=== PATIENT | female | born 1955 | race Caucasian/White ===

== ENCOUNTER 2017-01-02 08:59 | Emergency (ER) | payer BC ==
[2017-01-02 09:28] VITALS: BP 151/98
--- NOTE | 2017-01-02 09:45 | UC ---
Complaint Female HPI - HPI Summary HPI Summary: 2 day history of groin and ache low in buttocks, without dysuria or frequency. However, she does have a hx of UTI's presenting in a similar way. No history of stones. Concern about UTI led her to take a dose of cephalexin yesterday. No history of injury, does have a lumbar disk problem which is treated with injections. Location of pain and pattern is very different from this. Has been walking at least 04580 steps most days x 4 weeks without pain. UA is positive for nitrites. - History Of Current Complaint Chief Complaint: UCGeneralIllness Stated Complaint: URINARY Time Seen by Provider: 01/02/17 09:13 Hx Obtained From: Patient Onset/Duration: Gradual Onset, Lasting Days - 2 Timing: Intermittent, Lasting Minutes Severity Initially: Mild Severity Currently: Moderate Character: Cramping Aggravating Factor(s): Movement Alleviating Factor(s): Position Associated Signs And Symptoms: Positive: Back Pain - Allergies/Home Medications Allergies/Adverse Reactions: Allergies Allergy/AdvReac Type Severity Reaction Status Date / Time No Known Allergies Allergy Verified 01/02/17 09:10 Home Medications: Home Medications Cephalexin CAP* [Keflex CAP*] 500 mg PO ONCE 01/02/17 [History Confirmed ] HYDROcodo/Acetam5/325MG PREPAK [HYDROcodone/ACETAMIN 5-325 MG*] 1 tab PO Q4H PRN 01/02/17 [History Confirmed 01/02/17] PMH/Surg Hx/FS Hx/Imm Hx Previously Healthy: Yes - obese - Surgical History Surgical History: Yes Surgery Procedure, Year, and Place: Bilateral Bunionectomy, 2017, [place]; Bilateral Cataract Extration, 2016, [facility]; T&A, 1961, [place] - Family History Known Family History: Positive: Other - mother living age 88, healthy. Father of unknown causes. - Social History Occupation: Employed Full-time Alcohol Use: Rare Substance Use Type: None Smoking Status (MU): Former Smoker Length of Time of Smoking/Using Tobacco: 1 PPD for 17 Years When Did the Patient Quit Smoking/Using Tobacco: 1988 - Immunization History Most Recent Influenza Vaccination: 12/16/16 Review of Systems Constitutional: Negative - normal energy, no fever or chills. Gastrointestinal: Other - stools normal now, loose last weekend. No suprapubic pain Genitourinary: Other - hx of UTI's, last was more than a year ago Musculoskeletal: Arthralgia - ache in hips and low back. Is Patient Immunocompromised?: No All Other Systems Reviewed And Are Negative: Yes Physical Exam Triage Information Reviewed: Yes Appearance: Well-Appearing, Obese Vital Signs: Initial Vital Signs Temp 98.5 F 01/02/17 09:04 Pulse 85 01/02/17 09:04 Resp 18 01/02/17 09:04 BP 151/98 01/02/17 09:04 Pulse Ox 96 01/02/17 09:04 Eye Exam: Normal ENT: Positive: Pharynx normal Neck: Positive: Supple, Nontender Respiratory: Positive: Lungs clear, Normal breath sounds Cardiovascular: Positive: RRR, No Murmur Abdomen Description: Positive: Nontender, No Organomegaly, Soft. Negative: CVA Tenderness (R), CVA Tenderness (L) Bowel Sounds: Positive: Present Musculoskeletal Exam: Normal, Other - normal gait, flexes to 90 degrees at the waist. Pain in groin with return to neutral. Full pain free rom in hips with 90 degrees SLR. Skin Exam: Normal Diagnostics - Laboratory Diagnostic Studies Completed/Ordered: UA positive for nitrites, 1+ blood. Complaint Female Dx - Course Course Of Treatment: urine culture done, although has had a single dose of cephalexin. Patient aware it could limit urine testing. Will treat as UTI, follow up with Dr. Alfaro if not improving. - Differential Dx/Diagnosis Provider Diagnoses: UTI. groin pain [facility] Discharge - Discharge Plan Condition: Stable Disposition: HOME Prescriptions: Sulfamethox/Trimethoprim DS* [Bactrim DS 800/160 TAB*] 1 tab PO BID #10 tab Patient Education Materials: Urinary Tract Infection in Women (ED) Additional Instructions: Begin course of bactrim for suspected urinary tract infection. If you are not seeing improvement in 3 days, please follow up with your primary care physician to review the results of the urine culture. You can use acetaminophen for pain in the groin, 1000mg up to 3 times per day.
== END 2017-01-02 10:05 | disposition home or self-care (01) ==
LOC: UCCORT 08:59
DX: N39.0 Urinary tract infection, site not specified (principal)
CPT/HCPCS: 81003; 87086; 99212; G0463